=== PATIENT | female | born 1995 ===

== ENCOUNTER 2022-01-12 03:30 | Inpatient (IN) | payer OTHER ==
[~2022-01-12] VITALS: Ht 170.2 cm; Wt 65.9 kg
[2022-01-12] VITALS (19 sets, daily range): BP systolic 90–108; BP diastolic 54–66; PULSE 74–113; TEMP 97.8–98.2
--- NOTE | 2022-01-12 05:00 | NUR ---
IV BOLUS WAS STARTED 0435. ANESTHESIA NOTIFIED AT [address] EP[address]
[2022-01-12 05:10] LABS: BASO # 0.1 K/mm3 (0.0-0.2); BASO % 0.6 % (0.0-2.0); EOS # 0.5 K/mm3 (0.0-0.7); EOS % 4.2 % (0.0-4.0); GRAN # 8.9 K/mm3 (1.4-6.5); GRAN % 74.9 % (42.2-75.2); HEMOGLOBIN 12.3 g/dl (12.5-16.0); LYMPH # 1.4 K/mm3 (1.2-3.4); LYMPH % 12.2 % (20.0-51.0); MEAN CELL VOLUME 91 fl (80.0-100.0); MEAN CORPUSCULAR HEMOGLOBIN 33 pg (27-31); MEAN CORPUSCULAR HGB CONC 36 g/dl (33.0-37.0); MEAN PLATELET VOLUME 10.1 fl (7.4-10.4); MONO # 0.8 K/mm3 (0.1-0.6); MONO % 6.9 % (1.7-9.3); PLATELET COUNT 194 K/mm3 (130-400); RED BLOOD COUNT 3.77 M/mm3 (4.10-5.30); REDCELL DISTRIBUTION WIDTH-CV 12.9 % (11.5-14.5)
[2022-01-12 05:17] LABS: HEMATOCRIT 34.2 % (37.0-47.0)
--- NOTE | 2022-01-12 07:00 | NUR ---
Rests in bed, alert. Denies any needs or discomfort at this time.
--- NOTE | 2022-01-12 07:30 | NUR ---
Dr. Perkins here, does vaginal check. Pushes with patient a few times. Prepps for delivery. Continues to push with contractions. 0735 Red gurvinder used to drain bladder. 500 ccs of clear yellow urine. 0741 Spontaneous delivery of baby girl by Dr. Perkins. 0748 Spontaneous delivery of placenta by Dr. Perkins. Pitoicn infusing at 333ccs as ordered and per protocol.
--- NOTE | 2022-01-12 08:15 | NUR ---
Rests in bed, alert. Holds baby lovingly, at bedside.
--- NOTE | 2022-01-12 09:15 | NUR ---
Rests in bed, alert. Refuses pain medication at this time. States will let me know when she wants to take some.
--- NOTE | 2022-01-12 11:00 | NUR ---
To bathroom with jayleen mark. Is unable to void at this time. Encoraged to drink more water. To room 216 in wheel chair. Assisted to bed, says right leg still a little heavy. Let her know that she needs to call me before she gets up.
[2022-01-13 00:05] VITALS: BP 100/69; PULSE 90; TEMP 97.9
[2022-01-13 05:00] VITALS: BP 105/69; PULSE 87; TEMP 98.2
[2022-01-13 08:00] VITALS: BP 96/64; PULSE 79; TEMP 97.9
[2022-01-13] MEDS ORDERED: IBU800 M1 PO (10:41)
== END 2022-01-13 12:15 | disposition home or self-care (01) | DRG 807 ==
LOC: LDRO 03:30 → LDR 05:50 → OB 11:00
PROVIDERS: ADMIT Obstetrics & Gynecology
PROC: 10E0XZZ Delivery of Products of Conception, External Approach (ICD-10-PCS; principal; 2022-01-12)
PROC: 0HQ9XZZ Repair Perineum Skin, External Approach (ICD-10-PCS; 2022-01-12)
DX: O99.344 Other mental disorders complicating childbirth (principal); Z37.0 Single live birth; Z3A.40 40 weeks gestation of pregnancy; F41.9 Anxiety disorder, unspecified; O48.0 Post-term pregnancy; O70.0 First degree perineal laceration during delivery; O77.0 Labor and delivery complicated by meconium in amniotic fluid; O69.81X0 Labor and delivery complicated by cord around neck, without compression, not applicable or unspecified
CPT/HCPCS: J2590; J7120